=== PATIENT | female | born 1995 | race Caucasian/White ===

== ENCOUNTER 2020-07-16 01:23 | Emergency (ER) | payer OTHER ==
[~2020-07-16] VITALS: Ht 157.5 cm; Wt 65.8 kg
== END 2020-07-16 02:01 | disposition home or self-care (01) ==
LOC: ER 01:23
DX: L03.113 Cellulitis of right upper limb (principal)
CPT/HCPCS: 99283; A9270

== ENCOUNTER 2020-07-16 11:40 | Emergency (ER) | payer OTHER ==
[~2020-07-16] VITALS: Ht 157.5 cm; Wt 65.8 kg
== END 2020-07-16 15:12 | disposition home or self-care (01) ==
LOC: ER 11:40
DX: L03.113 Cellulitis of right upper limb (principal); F15.10 Other stimulant abuse, uncomplicated; F17.210 Nicotine dependence, cigarettes, uncomplicated
CPT/HCPCS: 36415; 80053; 83605; 85025; 93971; 96365; 96375; 99283-25; J1885; J7030